=== PATIENT | female | born 1985 | race Caucasian/White ===

== ENCOUNTER 2018-12-03 00:29 | Emergency (ER) | payer MEDICAID, OTHER ==
[~2018-12-03] VITALS: Ht 152.4 cm; Wt 50.4 kg
[~2018-12-03 00:29] MED LIST: BEN25 PO; CEPH-443 PO; FERR-55 PO; FOLI0.4T2 PO; PREN1TAB49 PO
[2018-12-03 00:36] VITALS: BP 132/81; PULSE 85; RESP 18; Ht 152.4 cm; Wt 50.4 kg
[2018-12-03] MEDS ORDERED: DIPHENHYDRAMINE 25 MG CAP PO ONE (01:30)
== END 2018-12-03 01:22 | disposition home or self-care (01) ==
LOC: FTE 00:29
DX: L29.9 Pruritus, unspecified (principal); F17.210 Nicotine dependence, cigarettes, uncomplicated
CPT/HCPCS: 99283